=== PATIENT | male | born 1990 | race Caucasian/White ===

== ENCOUNTER 2020-07-12 08:02 | Emergency (ER) | payer BC ==
[~2020-07-12] VITALS: Ht 172.7 cm; Wt 91.8 kg
[2020-07-12 08:11] VITALS: TEMP 99.1
[2020-07-12] MEDS ORDERED: ZOCOR 40MG40 MG PO (08:14)
[2020-07-12] MEDS ORDERED: PRINIVIL20 MG PO (08:14)
[2020-07-12] MEDS ORDERED: ZETIA 10MG TAB10 MG PO (08:15)
[2020-07-12] MEDS ORDERED: PRILOSEC 20MG20 MG PO (08:15)
[2020-07-12 08:42] LABS: BASO % 0.4 % (0.0-2.0); EOS % 0.2 % (0-4.0); GRAN # 8.2 (1.4-6.5); GRAN % 78.7 % (42.2-75.2); HEMATOCRIT 50.2 % (42.0-52.0); HEMOGLOBIN 17.2 g/dl (13.5-18.0); LYMPH # 1.5 (1.2-3.4); LYMPH % 14.5 % (20.0-51.0); MEAN CELL VOLUME 85 fl (80.0-100.0); MEAN CORPUSCULAR HEMOGLOBIN 29 pg (27.0-31.0); MEAN CORPUSCULAR HGB CONC 34 g/dl (33.0-37.0); MEAN PLATELET VOLUME 9.5 fl (7.4-10.4); MONO # 0.6 (0.1-0.6); MONO % 5.9 % (1.7-9.3); PLATELET COUNT 394 K/mm3 (130-400); RED BLOOD COUNT 5.94 M/mm3 (4.20-5.60); REDCELL DISTRIBUTION WIDTH-CV 12.5 % (11.5-14.5)
[2020-07-12 08:44] LABS: PROTHROMBIN TIME 11.7 SECONDS (9.7-12.8)
[2020-07-12 08:47] LABS: PARTIAL THROMBOPLASTIN TIME 35.6 SECONDS (26.0-37.0)
[2020-07-12 08:50] LABS: ALANINE AMINOTRANSFERASE 39 U/L (4-49); ALKALINE PHOSPHATASE 68 U/L (50-136); ANION GAP 11 mmol/L (7-16); AST,SGOT 36 U/L (15-37); BILIRUBIN,TOTAL 0.5 mg/dL (0.0-1.0); BLOOD UREA NITROGEN 14 mg/dL (9-20); CARBON DIOXIDE 22 mmol/L (22-30); CHLORIDE 103 mmol/L (98-107); CREATININE, serum 1.07 (0.66-1.25); GLUCOSE 112 mg/dL (74-106); POTASSIUM 4.2 mmol/L (3.4-5.0); SODIUM 136 mmol/L (137-145); TOTAL PROTEIN 8.1 gm/dL (6.4-8.2)
[2020-07-12 09:05] LABS: TROPONIN-I < 0.012 ng/mL (0.000-0.035)
[2020-07-12] MEDS ORDERED: COZAAR 50MG50 MG/TAB PO (10:30)
[2020-07-12] MEDS ORDERED: TOPROL XL 25MG25 MG PO (10:30)
[2020-07-12 10:45] VITALS: BP 122/87; PULSE 80
== END 2020-07-12 10:45 | disposition home or self-care (01) ==
LOC: COL.ER 08:02
PROVIDERS: Family Medicine
DX: I10 Essential (primary) hypertension (principal); R07.89 Other chest pain